=== PATIENT | male | born 1985 | race Two or more races ===

== ENCOUNTER 2019-11-07 10:54 | Emergency (ER) | payer OTHER, MEDICARE, MEDICAID ==
[~2019-11-07] VITALS: Ht 177.8 cm; Wt 61.2 kg
[2019-11-07 10:56] VITALS: BP 122/77
--- NOTE | 2019-11-07 10:56 | NUR ---
ED Nurse Note: PT brought in by ambulance from [facility] for C/O right foot pain. pt is under custody and is here for medical clearance. EDDID is with pt.
--- NOTE | 2019-11-07 11:15 | Emergency Room Report ---
History of Present Illness General Chief Complaint: Medical Clearance Source: Patient, Medical Record, Law Enforcement Present Illness HPI The patient is brought in by [place] police department in custody for illicit drug use. He presents for clearance for booking. He is stating that he has pain in his feet and between his toes. He states he has had this pain for a long time. He has no other complaints. He denies trauma. He is requesting socks and food. Allergies: Coded Allergies: No Known Allergies (Unverified , 11/07/19) COVID-19 Screening Contact w/high risk pt: No Recent Travel to affected area: No Experienced COVID-19 symptoms?: No COVID-19 Testing performed SIX [employer]T ENGINEER: No Patient History Past Medical History: asthma Social History: Reports: drug use - Polysubstance abuse Reviewed Nursing Documentation: PMH: Agreed; PSxH: Agreed Nursing Documentation-PMH Hx Asthma: Yes Review of Systems All Other Systems: negative except mentioned in HPI Physical Exam Vital Signs Date Time Temp Pulse Resp B/P (MAP) Pulse Ox O2 Delivery O2 Flow Rate FiO2 11/07/19 10:46 98.2 63 18 122/77 (92) 99 Room Air Sp02 EP Interpretation: reviewed, normal General Appearance: no apparent distress, alert, GCS 15, non-toxic Head: normocephalic, atraumatic Eyes: bilateral eye normal inspection, bilateral eye PERRL ENT: hearing grossly normal, no angioedema, normal voice Neck: normal inspection Respiratory: no respiratory distress, no retraction, no accessory muscle use, speaking full sentences Gastrointestinal: no rebound Rectal: deferred Musculoskeletal: back normal, normal range of motion, gait/station normal, non- tender Neurologic: alert, motor strength/tone normal, oriented x3, sensory intact, responsive, speech normal Psychiatric: judgement/insight normal, memory normal, mood/affect normal, no suicidal/homicidal ideation Skin: no rash, normal color, other - injection patel on lower legs but no erythema, warmth, swelling Medical Decision Making Diagnostic Impression: Primary Impression: Encounter for medical screening examination ER Course This patient had presented for medical clearance after being arrested and is in custody. He complained of pain in between his toes on both his feet but I was unable to identify any abnormalities on his feet other than calluses. There is no evidence of an infection or an emergency medical condition. Any further evaluation of the patient's foot pain can be done at [facility] and does not need evaluation in an emergency department at this time. The patient was mainly concerned about having some food and wearing socks. He was given socks and a sandwich. He was released and to the custody [facility] to Police Department for further evaluation at [facility]. Last Vital Signs Date Time Temp Pulse Resp B/P (MAP) Pulse Ox O2 Delivery O2 Flow Rate FiO2 11/07/19 10:56 63 18 Room Air 11/07/19 10:56 98.2 122/77 99 Disposition: LAW ENFORCEMENT IN CUST Condition: Stable Farhana Cantor DO Nov 07, 2019 11:15
--- NOTE | 2019-11-07 11:19 | NUR ---
ER DISCHARGE NOTE: Patient is cleared to be discharged per ERMD, pt is aox4, on room air, with stable vital signs. pt was given dc and prescription instructions, pt was able to verbalize understanding, pt id band removed without complications. pt is able to ambulate with steady gait. pt took all belongings and left with [employer]
[2019-11-07 11:20] VITALS: BP 118/80
== END 2019-11-07 11:20 ==
LOC: EDBD 10:54 → EMR 11:10
DX: M25.572 Pain in left ankle and joints of left foot (principal); M25.571 Pain in right ankle and joints of right foot; L84 Corns and callosities
CPT/HCPCS: 99281

== ENCOUNTER 2020-01-23 11:30 | Emergency (ER) | payer MEDICARE, MEDICAID ==
[~2020-01-23] VITALS: Ht 182.9 cm; Wt 68.0 kg
[2020-01-23 11:34] VITALS: BP 140/70
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
[2020-01-23] MEDS ORDERED: cefTRIAXone 1 GM in NS 55 ML IVPB ONE (12:15)
[2020-01-23] MEDS ORDERED: Vancomycin 1 GM in NS 275 ML IVPB ONE (12:15)
[2020-01-23] MEDS ORDERED: Omnipaque-300 100ml vial INJ ONE (12:15)
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
[2020-01-23 12:35] LABS: BASOPHILS % (AUTO) 0.6 % (0.0-2.0); EOSINOPHILS % (AUTO) 1.1 % (0.0-3.0); HEMATOCRIT 29.5 % (42.0-52.0); HEMOGLOBIN 9.4 G/DL (14.2-18.0); LYMPHOCYTES % (AUTO) 9.4 % (20.0-45.0); MEAN CORPUSCULAR VOLUME 79 FL (80-99); MONOCYTES % (AUTO) 7.3 % (1.0-10.0); NEUTROPHILS % (AUTO) 81.6 % (45.0-75.0); PLATELET COUNT 425 K/UL (150-450); RED BLOOD COUNT 3.73 M/UL (4.70-6.10); WHITE BLOOD COUNT 10.4 K/UL (4.8-10.8)
[2020-01-23 12:42] LABS: INR 1.1 (0.9-1.1)
[2020-01-23 12:46] LABS: ANION GAP 5 mmol/L (5-15); BLOOD UREA NITROGEN 10 mg/dL (7-18); CARBON DIOXIDE 29 MMOL/L (21-32); CHLORIDE 100 MMOL/L (98-107); CREATININE 0.7 MG/DL (0.55-1.30); POTASSIUM 3.8 MMOL/L (3.5-5.1); SODIUM 134 MMOL/L (136-145)
[2020-01-23 12:50] LABS: ALANINE AMINOTRANSFERASE 12 U/L (12-78); ALBUMIN 1.9 G/DL (3.4-5.0); ALBUMIN/GLOBULIN RATIO 0.4 (1.0-2.7); ALKALINE PHOSPHATASE 75 U/L (46-116); ASPARTATE AMINO TRANSFERASE 10 U/L (15-37); BILIRUBIN,TOTAL 0.2 MG/DL (0.2-1.0)
--- NOTE | 2020-01-23 13:15 | NUR ---
ED Nurse Note: pt was taken to CT.
--- NOTE | 2020-01-23 13:35 | NUR ---
ED Nurse Note: pt returned from CT on stable condition.
[2020-01-23 14:00] VITALS: BP 142/72
--- NOTE | 2020-01-23 14:48 | Diagnostic Imaging Report ---
Indication: Right hip pain and swelling, history of right hip replacement one year ago Technique: IV administration nonionic contrast. Spiral acquisitions obtained through the right hip Multiplanar reconstructions were generated. Total dose length product 246 mGycm. CTDIvol(s) 4.2 mGy. Radiation dose was minimized using automated exposure control Comparison: none Findings: There is a right hip arthroplasty prosthesis in place. There is also extensive surgical hardware within the right side of the pelvis. The hardware throws off streak artifact which may obscure pathology in limits evaluation of the area. The fractures traversed by the pelvic surgical hardware appear to be well-healed. The hip hardware appears to be well aligned an appears to be intact. No worrisome periprosthetic lucency is demonstrated. There is extensive soft tissue abnormality with numerous fluid collections seen both in the proximal thigh and within the pelvis. There is a multiloculated collection within the right iliacus muscle, occupying the right iliac fossa. This is complex in shape and therefore somewhat difficult to measure, but measures approximately 6.7 cm transverse by 3.7 cm AP by approximately 7 cm craniocaudad. There is also thickening and low-attenuation of the involved iliacus muscle which extends well into the inguinal region. This likely represents myositis Multiple soft tissue fluid collections are seen within the thigh, some of which are difficult to delineate due to the streak artifact from the prosthesis. The largest of these is in the anterolateral thigh extends from the skin surface to the bone/hardware, appears to also involve the belly of the vastus lateralis muscle. This measures approximately 8 x 7.5 orthogonal dimensions in the axial plane by approximately 14 cm in length. A second collection is located slightly more inferior, in the posterolateral thigh, located deep within the posterior aspect of the vastus lateralis muscle and contacting the hardware. This collection measures approximately 5 x 3.4 orthogonal transverse dimensions by 10 cm in length. A third collection is located anteromedial to the femoral prosthesis, either within the medial aspect of the vastus lateralis are within the vastus medialis. This measures 3.8 x 1.9 cm orthogonal transverse dimension by approximately 6 cm craniocaudad. There is suggestion of another collection anteromedial to the proximal femoral hardware, probably within the vastus intermedius but could be within one of the abductors. This is less well-defined, measures approximately 3.5 x 2.8 cm orthogonal transverse dimensions by approximately 4.7 cm in length. A less well-defined collection is seen within the gluteus medius muscle, measuring approximately 7 x 2 cm orthogonal transverse dimension by approximately 4 cm craniocaudad. There is low attenuation of multiple abductor muscles without definite discrete fluid collection. This most likely represents myositis but small abscesses likewise not excludable. There is also enlargement and low-attenuation without discrete collection of the right piriformis muscle. There is diffuse edema circumferentially of the thigh. The right iliac bone demonstrates slight superficial irregularity bordering the iliac fossa which is most likely related to the prior trauma. No definite osseous erosions to suggest osteomyelitis are evident. Given the extensive chronic/posttraumatic abnormality of the right proximal femur, foci of osteomyelitis are impossible to confidently exclude. Also, sensitivity of CT is limited for such. The included pelvic viscera are unremarkable. The left hip and thigh are unremarkable. Impression: Evidence of extensive right hip and pelvic infection, with multiple abscesses and areas of likely myositis, the most significant of which are delineated in detail above Postsurgical changes, as described Findings discussed with ER physician Dr. Nettles at the time of interpretation [place] [facility] [place] the [employer] and the scans are performed using protocols designed to limit radiation exposure to as low as reasonably achievable to attain images of sufficient resolution adequate for diagnostic evaluation.
--- NOTE | 2020-01-23 15:22 | NUR ---
ED Nurse Note: pt on bed, sleeping no acute distress noted.
[2020-01-23 17:39] VITALS: BP 144/74
--- NOTE | 2020-01-23 18:55 | NUR ---
ED Nurse Note: report given to STEFANIE Reynolds in [facility] for transfer of care.
--- NOTE | 2020-01-23 19:08 | NUR ---
ED Nurse Note: Report given to STEFANIE Johnson.
--- NOTE | 2020-01-23 19:09 | NUR ---
ED Nurse Note: Report received from ELIAS DURON RN
--- NOTE | 2020-01-23 21:09 | NUR ---
ER DISCHARGE NOTE: Patient was picked up by [facility] ambulance going to [facility] via BLS transport. Patient is cleared to be transferred per ERMD, pt is aox4, on room air, with stable vital signs. Report and patients packet given to ambulance personne. Transported safely to ambulance. pt took all belongings.
[2020-01-23 21:12] VITALS: BP 127/78
== END 2020-01-23 21:15 | disposition short-term general hospital (02) ==
LOC: EDBD 11:30 → EMR 12:58
DX: M00.9 Pyogenic arthritis, unspecified (principal); L02.91 Cutaneous abscess, unspecified; Z96.641 Presence of right artificial hip joint; R50.9 Fever, unspecified
CPT/HCPCS: 36415; 73702; 80053; 83605; 85025; 85610; 85651; 85730; 86140; 87040; 96365; 96368; 99285; J0696; J3370; J7050; Q9965; U0002